=== PATIENT | female | born 1980 | race Caucasian/White ===

== ENCOUNTER 2017-09-12 11:14 | Emergency (ER) | payer BC, OTHER ==
--- NOTE | 2017-09-12 11:53 | UC ---
Complaint Female HPI - HPI Summary HPI Summary: Shereen Saunders, scribed for attending Gemma Rodriguez MD. Pt is a 37 y/o F who presents to [facility] c/o slight dysuria since yesterday. Notes breakthrough bleeding which is normal with her oral contraceptives. Denies vaginal discharge, pruritis or malodor, N/V and back pain. Prior similar episodes with a Dx of UTI - last UTI 5 years ago for which she has taken Cipro with success in the past. Has regular pap smears all of which have been normal. No concern for STDs/STIs. No analgesia taken Patient medications and allergies reviewed this visit. - History Of Current Complaint Chief Complaint: UCGU Stated Complaint: URINARY ISSUE Time Seen by Provider: 09/12/17 11:31 Hx Obtained From: Patient Hx Last Menstrual Period: 2 weeks ago Onset/Duration: Lasting Days - Since yesterday, Still Present Severity Currently: None Pain Intensity: 0 Pain Scale Used: 0-10 Numeric Aggravating Factor(s): Urination - Pain w/ urination Alleviating Factor(s): Nothing Associated Signs And Symptoms: Negative: Fever, Back Pain, Vaginal Discharge, Nausea, Vomiting(# Of Episodes =) Related Hx: Similar Episode/Dx as: - Dx UTI - Allergies/Home Medications Allergies/Adverse Reactions: Allergies Allergy/AdvReac Type Severity Reaction Status Date / Time erythromycin base Allergy Hives Verified 09/12/17 11:41 Penicillins Allergy Hives Verified 09/12/17 11:41 Sulfa (Sulfonamide Allergy Hives Verified 09/12/17 11:41 Antibiotics) sulfamethoxazole Allergy Hives Verified 09/12/17 11:41 [From Bactrim] trimethoprim [From Bactrim] Allergy Hives Verified 09/12/17 11:41 Home Medications: Home Medications Ethinyl Estradiol/Drospirenone [Ocella 3-0.03 mg] 1 tab PO DAILY 09/12/17 [ History Confirmed 09/12/17] L.acidoph,Paracasei, B.lactis [Probiotic] 1 each PO DAILY 09/12/17 [History Confirmed 09/12/17] PMH/Surg Hx/FS Hx/Imm Hx - Additional Past Medical History Additional PMH: PMHx: Benign parotid tumor, PCOS Previously Healthy: Yes GI/ History: Kidney Stones, Other Other GI/ History: UTI - Surgical History Surgical History: Yes Surgery Procedure, Year, and Place: R parotid gland removal 2009 - Family History Known Family History: Positive: Diabetes - mother - Social History Occupation: Employed Full-time - manager media relations Alcohol Use: None Substance Use Type: None Smoking Status (MU): Never Smoked Tobacco Review of Systems Constitutional: Negative Skin: Negative Eyes: Negative ENT: Negative Respiratory: Negative Cardiovascular: Negative Gastrointestinal: Negative Genitourinary: Dysuria, Other - Vaginal bleeding Motor: Negative Neurovascular: Negative Musculoskeletal: Negative Neurological: Negative Psychological: Negative All Other Systems Reviewed And Are Negative: Yes - Comments Additional Review of Systems Comments: NEGATIVE: Vaginal discharge, pruritis or malodor, N/V and back pain Physical Exam - Summary Physical Exam Summary: Vital Signs Reviewed: Yes A+Ox3, no distress Eyes: Conjunctiva Clear ENT: Hearing grossly normal neck: supple Respiratory: Positive: No respiratory distress, No accessory muscle use Cardiovascular: skin color reflect adequate perfusion abd soft + BS no guarding, no rebound no CVA Musculoskeletal Exam: HASKINS x 4 without difficulty Neurological: Positive: Alert, ambulatory without difficulty Psychological: Positive: Normal Response To Family Skin: Positive: no rash, no ecchymosis Triage Information Reviewed: Yes Vital Signs: Initial Vital Signs Temp 98.0 F 09/12/17 11:36 Pulse 82 09/12/17 11:36 Resp 18 09/12/17 11:36 BP 145/84 09/12/17 11:36 Pulse Ox 100 09/12/17 11:36 Complaint Female Dx - Course Course Of Treatment: Blood pressure noted and patient informed to follow up with PCP. Patient medications and allergies reviewed this visit. Patient presents with dysuria since last night. Patient noted to have trace leukoesterase 2+ blood in her urine. Patient states the bleeding may be related to breakthrough bleeding that she has with her cycle. Discussed with patient. No concerns for STD eyes. We'll start Macrobid. Patient is active so voiding fluoroquinolones. We'll culture urine. Patient declined Pyridium. Return precautions discussed. - Differential Dx/Diagnosis Provider Diagnoses: dysuria Discharge - Sign-Out/Discharge Documenting (check all that apply): Patient Departure - Discharge - Discharge Plan Condition: Stable Disposition: HOME Prescriptions: Nitrofurantoin Monohyd/M-Cryst [Macrobid 100 mg Capsule] 100 mg PO BID #14 cap Patient Education Materials: Urinary Tract Infection in Women (DC) Referrals: Larissa Vazquez MD [Primary Care Provider] - Additional Instructions: - stay well hydrated - drink plenty of non-alcoholic, non caffinated beverages - your urine will be further tested - if you require any changes to your treatment, we will contact you - this usually take 2 days - Contact your primary doctor to arrange a follow-up appointment next week. Contact your doctor or return with questions or concerns - Take your antibiotics exactly as prescribed until gone - Okay to alternate ibuprofen (Advil, Motrin) and Tylenol every 3 hours for pain. Take with food - Call your doctor or return with questions or concerns - Billing Disposition and Condition Condition: STABLE Disposition: Home
== END 2017-09-12 12:03 | disposition home or self-care (01) ==
LOC: UCEAST 11:14
DX: R30.0 Dysuria (principal); Z88.0 Allergy status to penicillin; Z88.1 Allergy status to other antibiotic agents; Z88.2 Allergy status to sulfonamides; Z87.440 Personal history of urinary (tract) infections
CPT/HCPCS: 81003; 87077; 87086; 99202; G0463